=== PATIENT | male | born 1990 | race Two or more races ===

== ENCOUNTER 2018-08-13 16:42 | Emergency (ER) | payer OTHER ==
[~2018-08-13] VITALS: Ht 208.3 cm; Wt 99.8 kg
[2018-08-13 17:04] VITALS: BP 113/72
[2018-08-13] MEDS ORDERED: DiphenhydrAMINE 50mg/ml Inj IM ONE (17:15)
--- NOTE | 2018-08-13 17:39 | Emergency Room Report ---
History of Present Illness General Chief Complaint: Skin Rash/Abscess Source: Patient Present Illness HPI 27-year-old male presents to the emergency department complaining of painful rash with lesions on the palms and soles times one day. Patient reports very mild itching initially. Patient denies fevers, chills, recent travel or ill contacts with similar symptoms. Patient reports that he is HIV positive and he has not been on antiviral medications for 3 months as he is in the process of switching. Patient does report recent unprotected intercourse with Pt. denies fevers, chills or swollen tender lymph nodes. Denies lesions/rashes elsewhere on the body. Denies new medications or body washes or creams. Denies swelling of the lips, tongue , throat or airway. Denies wheezing, or shortness of breath. Denies recent travel, recent illness or ill contacts. denies blisters, oral lesions, or sloughing of the skin Allergies: Coded Allergies: ACETAMINOPHEN (Verified Allergy, Unknown, 08/13/18) HYDROCODONE (Verified Allergy, Unknown, 08/13/18) PENICILLINS (Verified Allergy, Unknown, 08/13/18) Patient History Past Medical History: see triage record, HIV Past Surgical History: none Pertinent Family History: none Reviewed Nursing Documentation: PMH: Agreed; PSxH: Agreed Nursing Documentation-PMH Past Medical History: No Stated History Review of Systems All Other Systems: negative except mentioned in HPI Physical Exam Vital Signs Date Time Temp Pulse Resp B/P (MAP) Pulse Ox O2 Delivery O2 Flow Rate FiO2 08/13/18 16:49 98.2 88 14 113/72 98 Room Air 98.2 Medical Decision Making PA Attestation Dr. Linares is my supervising physician whom pt. management has been discussed with. Diagnostic Impression: Primary Impression: Rash and other nonspecific skin eruption ER Course Pt. presents to the ED c/o rash on [ ] x [ ] days Ddx considered but are not limited to cellulitis, scabies, shingles, varicella, dermatitis, urticaria, eczema, tinea, viral exanthem, SJS Vital signs: are WNL, pt. is afebrile H&PE are most consistent with [ ] ORDERS: none required at this time, the diagnosis is clinical ED INTERVENTIONS: None required at this time. DISCHARGE: At this time pt. is stable for d/c to home. Will provide printed patient care instructions, and any necessary prescriptions. Care plan and follow up instructions have been discussed with the patient prior to discharge. Last Vital Signs Date Time Temp Pulse Resp B/P (MAP) Pulse Ox O2 Delivery O2 Flow Rate FiO2 08/13/18 17:04 98.2 88 14 113/72 98 Room Air 98.2 Disposition: HOME, SELF-CARE Condition: Stable Scripts Doxycycline Hyclate* (VIBRAMYCIN*) 100 Mg Capsule 100 MG ORAL EVERY 12 HOURS for 7 Days, #14 CAP 0 Refills Prov: Yessi Mak 08/13/18 Prednisone* (PREDNISONE*) 20 Mg Tablet 40 MG ORAL DAILY for 5 Days, #10 TAB Prov: Yessi Mak 08/13/18 Triamcinolone Acet (Triamcinolone Acetonide) 60 Ml Lotion 1 APPLIC TP BID, #60 ML Prov: Yessi Mak 08/13/18 Referrals: [facility],REFERRING (PCP) Patient Instructions: Hand Dermatitis, [id number], Rash Additional Instructions: Take medications as directed. Follow up with a Primary Care Provider within 72 hours , even if your symptoms have resolved. --Please review list of primary care clinics, if you do not already have a primary care provider Return sooner to ED if new symptoms occur, or current symptoms become worse. - Please note that this Emergency Department Report was dictated using Jumodirector style technology software, occasionally this can lead to erroneous entry secondary to interpretation by the dictation equipment. Yessi Mak Aug 13, 2018 17:39
[2018-08-13] MEDS ORDERED: KENALOG 0.1% LO60 ML TP (17:41)
[2018-08-13] MEDS ORDERED: PREDNISONE20 MG ORAL (17:41)
[2018-08-13] MEDS ORDERED: VIBRAMYCIN100 MG ORAL (17:49)
[2018-08-13 17:58] VITALS: BP 113/72
== END 2018-08-13 17:59 | disposition home or self-care (01) ==
LOC: EMR 17:05
DX: R21 Rash and other nonspecific skin eruption (principal); Z88.6 Allergy status to analgesic agent; Z88.0 Allergy status to penicillin
CPT/HCPCS: 96372; 99283; J1200; J7512